=== PATIENT | male | born 1990 | race Caucasian/White ===

== ENCOUNTER 2021-10-28 16:32 | Inpatient (IN) | payer BC, MEDICAID ==
[~2021-10-28] VITALS: Ht 177.8 cm; Wt 103.5 kg
[2021-10-28 18:34] LABS: HEMATOCRIT 45.7 % (42.0-52.0); HEMOGLOBIN 15.9 g/dl (13.5-17.5); MEAN CORPUSCULAR HEMOGLOBIN 29.7 pg (27.0-33.0); MEAN CORPUSCULAR HGB CONC 34.8 g/dl (32.0-36.5); MEAN CORPUSCULAR VOLUME 85.4 fl (80.0-96.0); PLATELET COUNT, AUTOMATED 202 10^3/uL (150-450); RED BLOOD COUNT 5.35 10^6/uL (4.30-6.10); WHITE BLOOD COUNT 10.6 10^3/uL (4.0-10.0)
[2021-10-28 18:54] LABS: AMPHETAMINES LEVEL URINE NEGATIVE (NEGATIVE); BARBITURATES URINE NEGATIVE (NEGATIVE); BENZODIAZEPINES URINE NEGATIVE (NEGATIVE); CANNABINOIDS URINE NEGATIVE (NEGATIVE); COCAINE METABOLITE URINE NEGATIVE (NEGATIVE); METHADONE URINE NEGATIVE (NEGATIVE); OPIATES URINE NEGATIVE (NEGATIVE); PHENCYCLIDINE URINE NEGATIVE (NEGATIVE)
[2021-10-28 19:00] LABS: RSV AMPLIFICATION NEGATIVE (NEGATIVE)
[2021-10-28 19:07] LABS: ACETAMINOPHEN LEVEL < 2.0 UG/ML (10.0-30.0); ALBUMIN 4.2 GM/DL (3.2-5.2); ALT/SGPT 75 U/L (12-78); BILIRUBIN,DIRECT 0.2 MG/DL (0.0-0.2); BILIRUBIN,TOTAL 0.8 MG/DL (0.2-1.0); BLOOD UREA NITROGEN 13 MG/DL (7-18); CALCIUM LEVEL 9.3 MG/DL (8.5-10.1); CARBON DIOXIDE LEVEL 25 MEQ/L (21-32); CHLORIDE LEVEL 109 MEQ/L (98-107); CREATININE FOR GFR 1.03 MG/DL (0.70-1.30); ETHYL ALCOHOL (ETHANOL) < 0.003 % (0.000-0.010); GLOMERULAR FILTRATION RATE > 60.0 (>60); GLUCOSE, FASTING 98 MG/DL (70-100); SALICYLATE LEVEL < 1.7 MG/DL (5.0-30.0); SODIUM LEVEL 142 MEQ/L (136-145); THYROID STIMULATING HORMONE 0.594 uIU/ML (0.358-3.740); TOTAL PROTEIN 7.6 GM/DL (6.4-8.2)
[2021-10-28] MEDS ORDERED: HOME MED LIST COMPLETE! XX SCH (21:45)
[2021-10-29] MEDS ORDERED: MAALOX 30 ML SUSP *UDC PO PRN (11:50)
[2021-10-29] MEDS ORDERED: diphenhydrAMINE 25MG CAP PO PRN (11:50)
[2021-10-29] MEDS ORDERED: traZODone 50 MG TAB PO PRN (11:50)
[2021-10-29] MEDS ORDERED: MOM 30ML SUSPENSION UDC PO PRN (11:50)
[2021-10-29] MEDS ORDERED: IBUPROFEN 400MG TAB PO PRN (11:50)
[2021-10-29] MEDS: NICOTINE 21MG/24HR 1 EA TRANSDERMAL TD SCH (15:28)
[2021-10-29 17:51] VITALS: BP 130/82
[2021-10-30 06:53] VITALS: BP 123/58
[2021-10-30] MEDS: NICOTINE 21MG/24HR 1 EA TRANSDERMAL TD SCH (08:37)
[2021-10-30] MEDS ORDERED: SERTRALINE HCL 25 MG TABLET PO ONE (21:00)
[2021-10-31 18:31] VITALS: BP 127/62
[2021-10-31] MEDS ORDERED: SERTRALINE HCL 25 MG TABLET PO SCH (21:00)
[2021-11-01 06:14] VITALS: BP 118/73
[2021-11-01] MEDS ORDERED: SERT50TA29 PO (09:06)
== END 2021-11-01 11:50 | disposition home or self-care (01) | DRG 754 ==
LOC: M ED 16:32 → M ED INP 10-29 11:47 → M PSY 10-29 17:41
PROVIDERS: ADMIT Student in an Organized Health Care Education/Training Program; ATTEND Psychiatry & Neurology Psychiatry
DX: F43.21 Adjustment disorder with depressed mood (principal); F31.9 Bipolar disorder, unspecified; R45.851 Suicidal ideations; Z63.5 Disruption of family by separation and divorce

== ENCOUNTER 2024-03-13 20:47 | Emergency (ER) | payer BC, MEDICAID, SELFPAY ==
[~2024-03-13] VITALS: Ht 177.8 cm; Wt 101.7 kg
[~2024-03-13 20:47] MED LIST: SERT50TA29 PO
[2024-03-13] MEDS: NS 1,000 ML IV SCH (21:53)
[2024-03-13] MEDS: propofoL 200 MG/20 ML VIAL IV.PROC PRN (21:53)
[2024-03-13] MEDS: ONDANSETRON 4MG 2ML VIAL IV ONE (22:20)
[2024-03-13 23:02] VITALS: BP 132/81; TEMP 97.8; O2SAT 99
== END 2024-03-13 23:25 | disposition home or self-care (01) ==
LOC: M ED 20:47
DX: S03.03XA Dislocation of jaw, bilateral, initial encounter (principal); X50.0XXA Overexertion from strenuous movement or load, initial encounter; Z79.899 Other long term (current) drug therapy; Y92.89 Other specified places as the place of occurrence of the external cause; Y93.89 Activity, other specified; Y99.9 Unspecified external cause status
CPT/HCPCS: 21480; 93041; 94760; 96361; 96374; 99152; 99291; J2405